=== PATIENT | female | born 1995 | race Caucasian/White ===

== ENCOUNTER 2018-11-17 18:37 | Emergency (ER) | payer MEDICAID, SELFPAY ==
[2018-11-17 18:38] VITALS: BP 115/68; PULSE 104; RESP 16; TEMP 36.6; O2SAT 98; BMI 19.0
[2018-11-17 19:43] LABS: Absolute Lymphocyte Count 1.95 X10^3/ul (0.83-4.51); Absolute Neutrophil Count 5.2 X10^3/uL (2.0-7.7); Basophil# 0.04 X10^3/uL; Basophil% 0.5 % (0-1); Eosinophil# 0.43 X10^3/uL; Eosinophils% 5.4 % (0-5); Hematocrit 41.4 % (37-47); Hemoglobin 13.7 g/dl (12.0-15.0); Lymphocyte # 1.95 X10^3/ul (4.0); Lymphocyte % 24.4 % (19-41); Mean Corp Hgb Conc 33.1 g/gl (32-36); Mean Corpuscular Volume 90.6 fL (81-99); Mean Platelet Vol. 11.8 fl (6.2-12.0); Monocyte# 0.34 X10^3/uL; Monocyte% 4.3 % (0-10); Neutrophil # 5.22 X10^3/uL (2.7-7.7); Neutrophil % 65.1 % (47-70); Platelet Count 220 K/mm3 (150-450); RBC Distribution Width CV 13.1 % (11.6-14.6); RBC Distribution Width SD 42.9 fl (35.1-43.9); Red Blood Count 4.57 M/mm3 (4.2-5.4)
[2018-11-17 19:47] LABS: POSITIVE COUNT NO; POSITIVE DIFFERENTIAL NO; POSITIVE MORPHOLOGY NO
[2018-11-17] MEDS: 0.9% Normal Saline 1,000 ML 150 ML IV (19:48)
[2018-11-17 20:02] LABS: Anion Gap 7 (5-15); BUN 16 mg/dL (7-18); BUN/Creat Ratio 21.9 RATIO (10-20); Calcium,Total 8.9 mg/dL (8.5-10.1); Chloride 106 mmol/L (98-107); Creatinine, Serum 0.73 mg/dL (0.55-1.02); EST Glomerular Filtration Rate 107 mL/min (>60); Est Glom Filt Rate - Afr Amer 130 mL/min (>60); Estimated Creatinine Clearance 97.42 ml/min; Glucose 96 mg/dL (74-106); Potassium 3.6 mmol/L (3.5-5.1); Sodium Level 141 mmol/L (136-145)
--- NOTE | 2018-11-17 20:15 | RAD_ITS ---
STUDY: X-RAY - ACUTE ABDOMINAL SERIES REASON FOR EXAM: Female, 22 years old. Abdominal pain and nausea TECHNIQUE: Single view of the chest. Supine, and upright view(s) of the abdomen were obtained. COMPARISON: None. FINDINGS: The lungs are clear and expanded. Normal size heart. Normal mediastinum and samia. Normal visualized pulmonary arteries. Normal visualized aortic arch and descending thoracic aorta. There is a non-specific bowel gas pattern. The soft tissue structures of the abdomen and pelvis are unremarkable. Normal visualized osseous structures. RAD/Acute Abdomen Inc Chest IMPRESSION: Normal x-ray examination of the chest, abdomen, and pelvis. Electronically Signed: Atul Napoles MD at 20:37 EST , Service support ,
[2018-11-17 20:20] LABS: Pregnancy, Serum, hCG Quali. NEGATIVE Negative (0-9 Nonpreg)
[2018-11-17 21:00] VITALS: BP 97/54; PULSE 77; RESP 18; O2SAT 100
--- NOTE | 2018-11-17 21:19 | ED.VISSUMM ---
- ER Visit Summary Date of Service: 11/17/18 Chief Complaint: Abdominal pain History of Present Illness: The patient is a 22 F who reports chronic history of abdominal pain since the age of 8. She had a feeding tube until the age of 15. This was managed in [facility]. Patient continues to have episodes of severe pain with occasional nausea and vomiting. Patient states she had severe pain earlier today but it is now resolved. Last p.o. intake was just before arrival. She has not had fever or chills. Patient states she has not seen her local physician in the last 2 years. Physical Examination: Vital signs unremarkable. Patient sitting upright in bed no acute distress. Patient is in no acute distress and is nontoxic appearing. Head and neck examination is normal. Heart is regular rate and rhythm. Palpable pulses are noted throughout. Lungs are clear with good air movement throughout. Abdomen is soft with mild tenderness in the epigastrium. Hypoactive but present bowel sounds are noted. Extremity examination is unremarkable with full range of motion. Neurologic examination reveals no focal deficits. Test Results: CBC and chemistry studies unremarkable. test negative. Acute abdominal series reveals normal bowel gas pattern. Emergency Department Course and Treatment: Patient was given IV fluids. She will be given a prescription for Zofran if she has recurrent nausea. She will be referred to Dr. Diamond for local GI follow-up. Treatment Plan: [] Disposition: Discharge Impression: Chronic abdominal pain This note was generated with [employer] dictation software. It may contain incorrect words, spelling, and punctuation that were not noted in review of the chart prior to signing ED Disposition - Plan for ED Patient: Chief Complaint: Abd Pain Referrals: Care Physician,No Primary [Primary Care Provider] -
--- NOTE | 2018-11-17 21:21 | ED.DEP ---
ED Disposition - Plan for ED Patient: Disposition: Home or Assisted Living Chief Complaint: Abd Pain Instructions: ED Abdominal Pain Unkn Cause Prescriptions: Ondansetron [Zofran Odt] 4 mg PO Q8H PRN PRN #10 tablet PRN Reason: Nausea Referrals: Isai Diamond MD [NON-STAFF] - As soon as possible
[2018-11-17 21:28] VITALS: PULSE 77
== END 2018-11-17 21:29 | disposition home or self-care (01) ==
PROVIDERS: Emergency Provider Emergency Medicine
DX: G89.29 Other chronic pain (principal); R10.13 Epigastric pain; K21.9 Gastro-esophageal reflux disease without esophagitis; F90.9 Attention-deficit hyperactivity disorder, unspecified type; Z87.891 Personal history of nicotine dependence; Z79.1 Long term (current) use of non-steroidal anti-inflammatories (NSAID); Z79.899 Other long term (current) drug therapy
CPT/HCPCS: 74022; 80048; 84703; 85025; 96360; 96361; 99283; J7030; A4216

== ENCOUNTER → 2019-01-06 08:59 | Outpatient (CLI) | payer MEDICAID, SELFPAY ==
--- NOTE | 2019-01-06 09:08 | RAD_ITS ---
STUDY: AIR-CONTRAST UPPER GI SERIES AND SMALL BOWEL FOLLOW-THROUGH EXAMINATION. REASON FOR EXAM: Female, 23 years old. Mid abdominal pain. FLUOROSCOPY TIME (if supplied): (1:23) minutes/seconds. 26 images were obtained. TECHNIQUE: The patient ingested barium. Multiple images of the esophagus, stomach and duodenum were obtained. Following this, a small bowel follow-through examination was performed. COMPARISON: None. FINDINGS: The esophagus unremarkable. There is no evidence obstruction. No mass lesion is seen. The stomach and duodenum are unremarkable. Small bowel series was obtained. The small bowel transit is normal. No intrinsic or extrinsic small bowel disease is seen. The terminal ileum is unremarkable. RAD/Upper GI/w Small Bowel IMPRESSION: Unremarkable examination. Electronically Signed: Rishi Levine, at 13:17 EDT , Service support ,
== END ==
PROVIDERS: Family Provider Internal Medicine; PCP Internal Medicine; Referring Provider Nurse Practitioner Family; Visit Provider Nurse Practitioner Family
DX: R11.0 Nausea (principal); R10.84 Generalized abdominal pain
CPT/HCPCS: 74249

== ENCOUNTER 2019-03-12 13:06 | Emergency (ER) | payer MEDICAID, SELFPAY ==
[2019-03-12 13:07] VITALS: BP 123/70; PULSE 107; RESP 16; TEMP 36.9; O2SAT 98; BMI 19.1
[2019-03-12 13:28] VITALS: O2SAT 98
[2019-03-12 13:45] VITALS: PULSE 83; RESP 16
[2019-03-12] MEDS: Ipratropium/Albuterol Sulfate 3 ML AMPUL.NEB INHALATION (13:45)
--- NOTE | 2019-03-12 14:11 | ED.VISSUMM ---
- ER Visit Summary Date of Service: 03/12/19 Chief Complaint: Short of breath History of Present Illness: The patient is a 23 F who woke this morning with shortness of breath and tight squeezing feeling in her lower ribs. She does have a history of asthma along with seasonal allergies. She states this feels similar. Symptoms are improving currently. Physical Examination: Vital signs are unremarkable. Respiratory rate is 16 and pulse ox is 98% on room air. Patient sitting upright in bed no acute distress. She is speaking full sentences. Heart is regular rate and rhythm. Lung sounds are slightly diminished. Abdomen is soft nontender. Test Results: [] Emergency Department Course and Treatment: DuoNeb treatment is given here. On repeat evaluation patient does feel improved. She has albuterol inhalers to use at home that she states are still good. She is to follow with her primary care physician or return here for worsening symptoms. Treatment Plan: [] Disposition: Discharge Impression: Mild bronchospasm, improved This note was generated with [employer] dictation software. It may contain incorrect words, spelling, and punctuation that were not noted in review of the chart prior to signing ED Disposition - Plan for ED Patient: Disposition: Home or Assisted Living Instructions: ED Reactive Airway Disease Referrals: Morelia Mayer MD [Primary Care Provider] - 1 Week if not improving
[2019-03-12 14:23] VITALS: BP 114/58; PULSE 97; RESP 16; O2SAT 97
== END 2019-03-12 14:24 | disposition home or self-care (01) ==
PROVIDERS: Emergency Provider Emergency Medicine; Family Provider Internal Medicine; PCP Internal Medicine
DX: J45.909 Unspecified asthma, uncomplicated (principal); K21.9 Gastro-esophageal reflux disease without esophagitis; Z87.891 Personal history of nicotine dependence
CPT/HCPCS: 94640; 99282

== ENCOUNTER 2019-03-24 17:05 | Emergency (ER) | payer MEDICAID, SELFPAY ==
[2019-03-24 17:06] VITALS: BP 105/54; PULSE 78; RESP 16; TEMP 36.8; O2SAT 98; BMI 20.4
--- NOTE | 2019-03-24 17:08 | RAD_ITS ---
STUDY: X-RAY - LEFT FOOT CLINICAL: Female, 23 years old. Twisting injury and pain TECHNIQUE: 3 view(s) of the foot. COMPARISON: None. FINDINGS: Normal talus, calcaneus, and tarsal bones. Normal visualized subtalar, talonavicular, calcaneocuboid, tarsal and tarsometatarsal articulations. Normal metatarsi. Normal metatarsophalangeal joint of the great toe. Normal tibial and fibular sesamoid bones. Normal interphalangeal joint of the great toe. Normal phalanges of the great toe. Normal second through fifth metatarsophalangeal joints. Normal interphalangeal joints and phalanges of the lesser toes. The soft tissue structures are unremarkable. RAD/Foot min 3 Views IMPRESSION: No acute osseous injury is evident. Electronically Signed: Doe Morales MD at 17:28 EDT Tel , Service support ,
--- NOTE | 2019-03-24 18:05 | ED.DCSUM_ITS ---
History of Present Illness Chief Complaint: Lower Extremity Injury Informant: Patient Onset: Today Narrative: inversion injury left foot 5 PM prior to arrival. No falls or head injuries. Unable to ambulate. No paresthesias. History of Crohn's disease. No medicatio ns taken prior to arrival. Prior similar symptoms: No Past Medical History - Allergies and Home Meds Allergies/Adverse Reactions: Allergies clarithromycin [From Biaxin] Allergy (Verified 03/12/19 13:08) Rash Primary Care Physician: Morelia Mayer MD [Primary Care Provider] - Smoking Status: Former smoker Review of Systems All systems negative except as indicated Musculoskeletal: Reports: Arthralgias Neurological: Denies: Parasthesia Physical Exam Vital Signs/Narrative: Vital Signs Temp Pulse Resp BP Pulse Ox 03/24/19 17:06 98.2 F 78 16 105/54 L 98 Inital Vital Signs reviewed: Yes General: Well nourished, Well developed, No Acute Distress Head: Normocephalic, Atraumatic Eyes: Perrl, EOMI ENT: Moist mucous membranes, No rhinorrhea Neck: Supple, Nontender Cardiovascular: Regular rate, Regular rhythm, No murmurs Respiratory: No distress, CTA bilaterally, Chest nontender Abdomen: Soft, Nontender, Nondistended, Normal bowel sounds Back: Nontender, Normal Inspection Extremities: No edema, - - Left lower extremity: No knee or ankle tenderness. Tender palpation midfoot mild proximal fifth base tenderness. No swelling, skin intact. Neurovascular intact. Skin: Normal color, No rash Neurological: Alert, Oriented x3, Cranial nerves II-XII grossly intact, Normal Strength, Normal Sensation Psychological: Normal affect, Normal Mood Diagnostic/Tx/Re-eval Left foot x-ray: No fracture or dislocation. - Medical Decision Making X-ray obtained from triage, negative per radiology. Postop shoe crutches, Tylenol started. Patient has an Scout wrap. Rice therapy. Follow-up with PCP. ED Disposition - Plan for ED Patient: Disposition: Home or Assisted Living Diagnosis: Sprain of left foot Instructions: ED Sprain Foot Referrals: Morelia Mayer MD [Primary Care Provider] - 1 Week
[2019-03-24] MEDS: Acetaminophen 500 MG Tablet 1000 MG PO (18:30)
[2019-03-24 18:32] VITALS: BP 116/52; PULSE 73; RESP 15; O2SAT 98
== END 2019-03-24 18:35 | disposition home or self-care (01) ==
PROVIDERS: Emergency Provider Emergency Medicine; Family Provider Internal Medicine; PCP Internal Medicine
DX: S93.602A Unspecified sprain of left foot, initial encounter (principal); Z87.891 Personal history of nicotine dependence; X50.1XXA Overexertion from prolonged static or awkward postures, initial encounter; Y93.89 Activity, other specified; Y92.89 Other specified places as the place of occurrence of the external cause; Y99.8 Other external cause status
CPT/HCPCS: 73630; 99284